=== PATIENT | female | born 2000 | race African-American/Black ===

== ENCOUNTER 2024-05-08 23:42 | Emergency (ER) | payer MEDICAID ==
[~2024-05-08] VITALS: Ht 175.3 cm; Wt 82.0 kg
[2024-05-08 23:46] VITALS: O2SAT 98
[2024-05-09] MEDS: ACETAMINOPHEN 325MG TABLET PO ONE (00:59)
[2024-05-09] MEDS: ACETAMINOPHEN 325MG TABLET PO NR (02:08)
[2024-05-09 02:50] VITALS: BP 124/70; PULSE 69; RESP 18; TEMP 36.55848; O2SAT 99
== END 2024-05-09 02:52 | disposition home or self-care (01) ==
LOC: ER 23:42
DX: S00.01XA Abrasion of scalp, initial encounter (principal); S00.411A Abrasion of right ear, initial encounter; R51.9 Headache, unspecified; W22.8XXA Striking against or struck by other objects, initial encounter; Y93.89 Activity, other specified; Y92.89 Other specified places as the place of occurrence of the external cause; Y99.8 Other external cause status
CPT/HCPCS: 99285